=== PATIENT | female | born 1985 | race Two or more races ===

== ENCOUNTER 2024-02-22 23:16 | Emergency (ER) | payer BC ==
[2024-02-23 00:15] LABS: Bilirubin Neg (Negative); Blood, Urine 250 (Negative); Clarity Slightly Cloudy (Clear); Glucose, Urine (Dipstick) Normal (Negative); Ketone, Urine Negative (Negative); Leukocyte 500 (Negative); Nitrite Negative (Negative); Protein, Urine (Dipstick) 30 mg/dl (Neg-Trace); Urobilinogen Normal mg/dL (Less than 2); pH, Urine 6.5 (5.0-9.0)
[2024-02-23 00:37] LABS: Bacteria/HPF 3+ HPF (None Seen); CAUTI Indications for Culture Pregnancy; Mucous/LPF Few LPF (<2+); WBC/HPF 21-50 HPF (0-3)
[2024-02-23 00:38] LABS: Urine Culture Reflex Yes Yes
== END 2024-02-23 01:50 | disposition home or self-care (01) ==
LOC: CSHERS 23:16
DX: O20.0 Threatened abortion (principal); Z3A.08 8 weeks gestation of pregnancy
CPT/HCPCS: 36415; 76801; 81001; 84702; 87086

== ENCOUNTER 2024-03-27 08:32 | Outpatient (CLI) | payer BC | END 2024-03-27 08:33 | disposition home or self-care (01) | LOC: CSHULT 08:32 | PROVIDERS: ATTEND Student in an Organized Health Care Education/Training Program | DX: N63.10 Unspecified lump in the right breast, unspecified quadrant (principal) ==